=== PATIENT | female | born 1935 | race Caucasian/White ===

== ENCOUNTER → 2020-10-08 | Emergency (ER) | payer OTHER ==
[~2020-10-08] VITALS: Ht 152.4 cm; Wt 49.9 kg
[~2020-10-08] MED LIST: ARICEPT5 MG; AZITHROMYCIN500 M2 IV; COZAAR25 MG PO; DECADRON6 MG PO; GUAIFENESIN400 MG PO; HYDROCHLOROTHIA25 MG PO; RESTORIL30 M1 PO; VITAMIN C WIT1000 MG PO; VITAMIN D3-ALO1 EACH PO; ZINC SULFATE220 M2 PO
== END | disposition home or self-care (01) ==
LOC: ER 14:44
DX: B34.9 Viral infection, unspecified (principal); J06.9 Acute upper respiratory infection, unspecified; B96.0 Mycoplasma pneumoniae [M. pneumoniae] as the cause of diseases classified elsewhere; Z03.818 Encounter for observation for suspected exposure to other biological agents ruled out